=== PATIENT | female | born 1965 | race African-American/Black ===

== ENCOUNTER 2020-11-08 19:10 | Emergency (ER) | payer MEDICARE, SELFPAY ==
[2020-11-08 19:18] VITALS: BP 151/104; PULSE 79; RESP 24; TEMP 36.3; O2SAT 97
--- NOTE | 2020-11-08 19:26 | ED.ASTHMA ---
HPI - Asthma General Chief Complaint: Asthma Stated Complaint: SOB Time Seen by Provider: 11/08/20 19:26 Source: patient and RN notes reviewed History of Present Illness HPI Narrative: Patient is a 55-year-old female who presents the urgent care with complaints of shortness of breath that started this evening. Patient states that she has asthma and the cap of her nebulizer machine busted . Patient states that these are her typical symptoms of a small asthma exacerbation that is typically improved with her nebulizer. Patient states that she is from [place] and has another machine at home. Patient states that she has been using her inhaler without much improvement. Patient denies of any chest pain, fever, chills, nausea, vomiting. No other acute complaints. No acute distress noted. Patient aware of the plan of care. Some parts of this dictation were generated by voice recognition software and may contain typographical and/or grammatical inaccuracies. Related Data Home Medications Medication Instructions Recorded Confirmed Adult Aspirin EC Low Strength 11/08/20 Lasix 11/08/20 Motrin 11/08/20 Trelegy Ellipta 11/08/20 albuterol 11/08/20 metoprolol succinate 11/08/20 spironolactone 11/08/20 Allergies Allergy/AdvReac Type Severity Reaction Status Date / Time Penicillins Allergy Itching Verified 11/08/20 19:39 Review of Systems Review of Systems: Narrative: CONSTITUTIONAL: Denies fever, chills, or sweats. EYES: Denies visual changes, redness, or discharge. ENT: Denies rhinorrhea, congestion, sore throat, or otalgia. CARDIOVASCULAR: Denies chest pain, palpitations, or edema. RESPIRATORY: Reports of shortness of breath GASTROINTESTINAL: Denies abdominal pain, nausea, vomiting, or diarrhea. GENITOURINARY: Denies dysuria or hematuria. SKIN: Denies rash or itching. MUSCULOSKELETAL: Denies back pain, joint pain, or myalgia. NEUROLOGIC: Denies headache, numbness, or weakness. All other systems reviewed are negative, except as documented in HPI. [facility] Social History Social History Gender identity (if verbalized by the patient): Female Comments At the time of my signature, I reviewed and agree with the nursing past medical, surgical, social, and family history. There is no relevant family history pertinent to the patient complaint. Exam Narrative: Exam Narrative: GENERAL: This is a well-nourished, well-developed patient, in no apparent distress. HEAD: normocephalic, atraumatic. EYES: PERRL. Sclera clear/white. Vision is grossly intact. EARS: External ears normal NOSE: External nose normal with no obvious nasal discharge, nares without redness, no rhinorrhea. THROAT: Mucous membranes moist, posterior pharynx clear. NECK: Neck supple, non-tender without lymphadenopathy CARDIOVASCULAR: Regular rate and rhythm without murmurs, gallops, or rubs. RESPIRATORY: Slight inspiratory wheeze to left upper lobe, otherwise clear SKIN: warm, intact with no suspicious lesions or rash, good texture and turgor. NEURO: awake, alert, and oriented to person, place and time. There were no obvious focal neurologic abnormalities. EXTREMITIES: No clubbing, cyanosis, or edema. Course Vital Signs Vital signs: Vital Signs Temperature 97.3 F L 11/08/20 19:18 Pulse Rate 79 11/08/20 19:18 Respiratory Rate 24 H 11/08/20 19:18 Blood Pressure 151/104 H 11/08/20 19:18 Pulse Oximetry 97 11/08/20 19:18 Temperature 97.3 F L 11/08/20 19:18 Pulse Rate 79 11/08/20 19:18 Respiratory Rate 24 H 11/08/20 19:18 Blood Pressure 151/104 H 11/08/20 19:18 Pulse Oximetry 97 11/08/20 19:18 Reviewed-patient is informed that they may have pre-hypertension or hypertension based on a blood pressure reading in the department. I recommend the patient call the primary care provider listed on their discharge instructions or a physician of their choice this week to arrange follow-up for further evaluation of possible pre-hypertens
[2020-11-08] MEDS: IPRATROPIUM BR 0.02% INH SOLN 0.5 MG/2.5 ML VIAL INHALATION (19:35)
[2020-11-08] MEDS: ALBUTEROL SULFATE NEB 2.5 MG/3 ML INH INHALATION (19:35)
[2020-11-08 19:54] VITALS: RESP 19
== END 2020-11-08 20:00 | disposition home or self-care (01) ==
PROVIDERS: Emergency Provider Nurse Practitioner Family
DX: J45.901 Unspecified asthma with (acute) exacerbation (principal); Z90.711 Acquired absence of uterus with remaining cervical stump
CPT/HCPCS: 94640; 99203; G0463